=== PATIENT | female | born 1990 | race Caucasian/White ===

== ENCOUNTER 2018-01-06 03:19 | Inpatient (IN) | payer OTHER ==
[~2018-01-06] VITALS: Ht 159 cm; Wt 59.9 kg
[~2018-01-06 03:19] MED LIST: DSS100 PO; IBUP-2070 PO; PREN-64 PO
[2018-01-06] MEDS ORDERED: RINGERS SOLUTION,LACTATED 1,000 ML IV PRN (03:55)
[2018-01-06] MEDS ORDERED: RINGERS SOLUTION,LACTATED 1,000 ML IV SCH (03:55)
[2018-01-06] MEDS ORDERED: FentaNYL CITRATE-PF 100 MCG/2 ML VIAL IVP PRN (04:00)
[2018-01-06] MEDS ORDERED: METOCLOPRAMIDE HCL 5 MG/ML 2 ML VIAL IVP PRN (04:00)
[2018-01-06] MEDS ORDERED: CITRIC ACID/SODIUM CITRATE 30 ML SOLUTION UDCUP PO PRN (04:00)
[2018-01-06] MEDS ORDERED: RINGERS SOLUTION,LACTATED 0 ML IV ONE (04:02)
[2018-01-06] MEDS ORDERED: ROPIVACAINE HCL/PF 0.2% 100 ML ED ONE (04:08)
[2018-01-06] MEDS ORDERED: LIDOCAINE HCL/PF 2% 5 ML VIAL ONE (04:08)
[2018-01-06] MEDS ORDERED: OXYTOCIN 30 UNITS/LACT RINGERS 500 ML IV ONE (04:16)
[2018-01-06] MEDS ORDERED: FentaNYL/BUPIV 0.125%/NS/PF 200 ML ED PRN (04:23)
[2018-01-06] MEDS ORDERED: DiphenhydrAMINE HCL 50 MG/ML VIAL IVP PRN (04:30)
[2018-01-06] MEDS ORDERED: ONDANSETRON HCL 4 MG/2 ML VIAL IVP PRN (04:30)
[2018-01-06] MEDS ORDERED: NALBUPHINE HCL 10 MG/ML VIAL IVP PRN (04:30)
[2018-01-06 04:52] LABS: BASOPHILS % (AUTO) 0.5 % (0.0-2.0); EOSINOPHILS % (AUTO) 0.1 % (1.0-6.0); HEMATOCRIT 34.4 % (36-46); HEMOGLOBIN 11.8 g/dL (12.0-16.0); LYMPHOCYTES # (AUTO) 1.4 K/uL (1.0-4.8); LYMPHOCYTES % (AUTO) 11.4 % (22.0-44.0); MEAN CORPUSCULAR HEMOGLOBIN 30.6 pg (26.0-34.0); MEAN CORPUSCULAR HGB CONC 34.3 G/dL (31.0-37.0); MEAN CORPUSCULAR VOLUME 89 fL (80-100); MONOCYTES # (AUTO) 0.4 K/uL (0.1-1.0); MONOCYTES % (AUTO) 3.5 % (2.0-9.0); NEUTROPHILS # (AUTO) 10.2 K/uL (1.8-7.7); NEUTROPHILS % (AUTO) 84.5 % (40.0-70.0); PLATELET COUNT (AUTO)-OB 192 K/uL (150-450); RED BLOOD CELL COUNT(AUTO) 3.86 MIL/uL (4.00-5.20); RED CELL DISTRIBUTION WIDTH 14.9 % (11.5-14.5)
[2018-01-06] MEDS ORDERED: LIDOCAINE HCL/PF 1% 30 ML VIAL ONE (04:56)
[2018-01-06] MEDS ORDERED: LIDOCAINE HCL 1%/EPI 1:200,000/PF 30 ML VIAL INJ ONE (05:15)
[2018-01-06] MEDS ORDERED: GLYCERIN/WITCH HAZEL LEAF 40 PADS JAR TP PRN (05:30)
[2018-01-06] MEDS ORDERED: OxyCODONE HCL/ACETAMINOPHEN 5-325 MG TABLET PO PRN ×2 (05:30)
[2018-01-06] MEDS ORDERED: BENZOCAINE 20%/MENTHOL 56 GM SPRAY CANISTER TP PRN (05:30)
[2018-01-06] MEDS ORDERED: MAGNESIUM HYDROXIDE SUSPENSION 30 ML UDCUP PO PRN (05:30)
[2018-01-06] MEDS ORDERED: LANOLIN 7 GM OINTMENT TP PRN (05:30)
[2018-01-06 05:39] VITALS: BP 147/83
[2018-01-06] MEDS ORDERED: OXYGEN THERAPY IH SCH (08:00)
[2018-01-06] MEDS: IBUPROFEN 600 MG TABLET PO PRN (08:07)
[2018-01-07] MEDS: IBUPROFEN 600 MG TABLET PO PRN (04:09)
[2018-01-07 06:38] LABS: BASOPHILS % (AUTO) 0.8 % (0.0-2.0); EOSINOPHILS % (AUTO) 0.9 % (1.0-6.0); HEMATOCRIT 31.5 % (36-46); LYMPHOCYTES # (AUTO) 2.6 K/uL (1.0-4.8); LYMPHOCYTES % (AUTO) 22.6 % (22.0-44.0); MEAN CORPUSCULAR HEMOGLOBIN 30.9 pg (26.0-34.0); MEAN CORPUSCULAR HGB CONC 34.7 G/dL (31.0-37.0); MEAN CORPUSCULAR VOLUME 89 fL (80-100); MONOCYTES # (AUTO) 0.7 K/uL (0.1-1.0); NEUTROPHILS % (AUTO) 69.7 % (40.0-70.0); PLATELET COUNT (AUTO)-OB 203 K/uL (150-450); RED BLOOD CELL COUNT(AUTO) 3.55 MIL/uL (4.00-5.20); RED CELL DISTRIBUTION WIDTH 15.5 % (11.5-14.5)
[2018-01-07] MEDS ORDERED: IBUP-2070 PO (11:22)
== END 2018-01-07 12:35 | disposition home or self-care (01) | DRG 775 ==
LOC: 4S 03:19 → OBSVTOIN 03:19
PROVIDERS: ADMIT Obstetrics & Gynecology; ATTEND Obstetrics & Gynecology
PROC: 10E0XZZ Delivery of Products of Conception, External Approach (ICD-10-PCS; principal; 2018-01-06)
PROC: 0KQM0ZZ Repair Perineum Muscle, Open Approach (ICD-10-PCS; 2018-01-06)
PROC: 0W8NXZZ Division of Female Perineum, External Approach (ICD-10-PCS; 2018-01-06)
PROC: 3E0R3BZ Introduction of Anesthetic Agent into Spinal Canal, Percutaneous Approach (ICD-10-PCS; 2018-01-06)
PROC: 00HU33Z Insertion of Infusion Device into Spinal Canal, Percutaneous Approach (ICD-10-PCS; 2018-01-06)
DX: O69.81X0 Labor and delivery complicated by cord around neck, without compression, not applicable or unspecified (principal); O70.1 Second degree perineal laceration during delivery; Z37.0 Single live birth; Z3A.37 37 weeks gestation of pregnancy
CPT/HCPCS: 86850; 86900; 86901; J2590; J2795; J3490; J7120